=== PATIENT | female | born 1980 | race Two or more races ===

== ENCOUNTER 2022-11-27 22:02 | Emergency (ER) | payer MEDICAID ==
[~2022-11-27] VITALS: Ht 162.6 cm; Wt 81.6 kg
--- NOTE | 2022-11-27 23:18 | NUR ---
DR. NICHOLSON AT BEDSIDE
[2022-11-27] MEDS ORDERED: IBUPROFEN 400 MG TABLET ONE (23:25)
[2022-11-27] MEDS ORDERED: IBUPROFEN 400 MG TABLET PO ONE (23:30)
[2022-11-28] MEDS ORDERED: IBUP-1953 PO (01:10)
[2022-11-28 01:17] VITALS: BP 100/63
== END 2022-11-28 01:18 | disposition home or self-care (01) ==
LOC: ER 22:08
DX: S93.602A Unspecified sprain of left foot, initial encounter (principal); Z88.8 Allergy status to other drugs, medicaments and biological substances; Z59.01 Sheltered homelessness; W10.1XXA Fall (on)(from) sidewalk curb, initial encounter; Y93.01 Activity, walking, marching and hiking; Y92.480 Sidewalk as the place of occurrence of the external cause; Y99.8 Other external cause status
CPT/HCPCS: 73610-TC; 73630-TC

== ENCOUNTER 2022-12-03 18:10 | Emergency (ER) | payer MEDICAID ==
[~2022-12-03] VITALS: Ht 162.6 cm; Wt 83.5 kg
[~2022-12-03 18:10] MED LIST: IBUP-1953 PO
--- NOTE | 2022-12-03 18:15 | NUR ---
RECEIVED PT 42 YRS FELAE WALKING IN FROM HOME C/O PAIN SWALLEN AND TENDER FROM IV CONTRASTE FOR CT ANG THIS MORNING
--- NOTE | 2022-12-03 18:25 | NUR ---
SEEN BY DR. LÓPEZ
--- NOTE | 2022-12-03 18:50 | NUR ---
INSERTED ANGO CATHETER G 22 ON LT HAND
[2022-12-03] MEDS ORDERED: IV NS 0.9% 1,000 ML BAG IV ONE (19:00)
--- NOTE | 2022-12-03 19:32 | NUR ---
US ON RT ARM AT BED SIDE
--- NOTE | 2022-12-03 19:35 | NUR ---
HAND OFF KARYN TAYLOR
[2022-12-03 21:45] VITALS: BP 102/78
== END 2022-12-03 21:45 | disposition home or self-care (01) ==
LOC: ER 18:28
DX: M79.601 Pain in right arm (principal); T80.818A Extravasation of other vesicant agent, initial encounter; Z79.899 Other long term (current) drug therapy; Z91.040 Latex allergy status; Z88.8 Allergy status to other drugs, medicaments and biological substances
CPT/HCPCS: 99284; 96360; 93971; J7030